=== PATIENT | female | born 1945 | race Caucasian/White ===

== ENCOUNTER 2021-04-27 13:58 | Outpatient (CLI) | payer MEDICARE, BC | END 2021-04-27 13:59 | disposition critical access hospital (66) | LOC: EMS 13:58 | DX: S01.81XA Laceration without foreign body of other part of head, initial encounter (principal); M25.562 Pain in left knee; M25.561 Pain in right knee; W01.0XXA Fall on same level from slipping, tripping and stumbling without subsequent striking against object, initial encounter; Y92.008 Other place in unspecified non-institutional (private) residence as the place of occurrence of the external cause | CPT/HCPCS: A0425; A0429 ==

== ENCOUNTER 2021-04-27 14:29 | Emergency (ER) | payer MEDICARE, BC ==
[2021-04-27] MEDS ORDERED: TETANUS/DIPHTHERIA/PERTUSSIS 0.5 ML SYRINGE IM ONE (14:56)
--- NOTE | 2021-04-27 15:01 | ED Physician Documentation ---
History of Present Illness - Stated complaint Stated Complaint: GLF - Chief complaint Chief Complaint: Trauma Hd/Nk - Additonal information Additional information: 76-year-old female presents to the emergency department for evaluation of facial trauma after ground-level fall. She was walking her dogs to the backyard when she tripped on the door jam falling forward striking herself on pebbled concrete. No loss of consciousness. She is not anticoagulated. She had difficulty getting up but states that she always has difficulty getting up when off the ground due to knee pain. She presents here with a modified cervical collar and facial abrasion forehead abrasion. Neurologically appears intact. Review of Systems Constitutional: denies: Fever, Chills Eyes: reports: Reviewed and negative Ears: reports: Reviewed and negative Nose: reports: Reviewed and negative Throat: reports: Reviewed and negative Cardiac: reports: Reviewed and negative Respiratory: reports: Reviewed and negative GI: reports: Reviewed and negative : reports: Reviewed and negative Skin: reports: Reviewed and negative Musculoskeletal: reports: Neck pain Neurologic: reports: Headache, Head injury. denies: Generalized weakness, Focal weakness, Numbness, Confused, LOC PD PAST MEDICAL HISTORY - Past Surgical History General: Cholecystectomy - Present Medications Home Medications: Ambulatory Orders Medication Instructions Recorded Confirmed No Known Home Medications 04/12/14 04/27/21 - Allergies Allergies/Adverse Reactions: Allergies Allergy/AdvReac Type Severity Reaction Status Date / Time No Known Drug Allergies Allergy Verified 04/27/21 14:36 PD ED PE EXPANDED - General General: Alert, No acute distress - HEENT HEENT: PERRL, EOMI, Ears normal, Moist mucous membranes, Pharynx normal. No: Atraumatic (Large abrasion and contusion just above the forehead extending into the hairline.) - Neck Neck: Supple w/out meningeal sx (Once c-spine CT negative; modified collar (blanket) removed. pt is ranging her neck normally withotu pain), Soft tissue TTP. No: No tenderness (Mild soft tissue tenderness. No midline spinous process tenderness. Full range of motion of the neck.), Bony TTP, Limited ROM - Cardiac Cardiac: Regular Rate, Radial strong equal, Pedal strong equal, Cap refill < 2 sec - Respiratory Respiratory: Clear to ausultation kishore. No: Distress, Labored - Abdomen Abdomen: Normal Bowel sounds - Back Back: Normal exam. No: Soft tissue tenderness - Derm Derm: Abrasion (s) (Central forehead extending into the hairline) - Extremities Extremities: Normal. No: Deformity, Tenderness - Neuro Neuro: Alert and Oriented X 3, CNII-XII intact, Normal finger nose, Normal speech - GCS Eye Opening: Spontaneous Motor: Obeys Commands Verbal: Oriented Total: 15 Results - Vitals Vitals: Vital Signs - 24 hr 04/27/21 14:34 Temperature 36.9 C Heart Rate 83 Respiratory 18 Rate Blood Pressure 181/90 H O2 Saturation 99 Oxygen O2 Source Room air - Rads (name of study) CT head Radiology: Final report received (Atrophy and chronic ischemic change without acute hemorrhage or mass-effect) maxfac CT Radiology: Final report received (Left frontal scalp hematoma without maxillofacial fracture) Cervical CT Radiology: Final report received (No visualized fracture) PD MEDICAL DECISION MAKING - ED course Complexity details: reviewed results, re-evaluated patient, d/w patient ED course: 76-year-old female presents the emergency department for evaluation of facial trauma after ground-level fall this morning in which she tripped on her door jam. She fell forward striking her forehead on concrete. There was no loss of consciousness and she is not anticoagulated. She does present with a very large left-sided forehead abrasion and contusion. She did present as a modified trauma with a modified c-collar (blanked wrapped around her neck) in place. CT max face, head and neck were without acute findings. I did remove the modified collar and patient is able to fully range her neck without any pain elicited. Patient is advised ibuprofen or Tylenol for for any discomfort. Emergent worrisome return precautions were discussed. Departure - Departure Disposition: 01 Home, Self Care Clinical Impression: Fall from ground level Contusion of forehead Qualifiers: Encounter type: initial encounter Qualified Code(s): S00.83XA - Contusion of other part of head, initial encounter Forehead abrasion Qualifiers: Encounter type: initial encounter Qualified Code(s): S00.81XA - Abrasion of other part of head, initial encounter Condition: Stable Record reviewed to determine appropriate education?: Yes Instructions: ED Head Injury Closed Comments: You were seen in the emergency department today after a ground-level fall in which she fell forward striking her face on the concrete. You do have an abrasion and contusion to your forehead. In general treat this like any other abrasion. Wash with warm soap and water pat dry and then apply any antibiotic ointment such as Neosporin or bacitracin. We did do a CT scan of your head, neck and facial bones. There were no fractures seen or findings of bleeding within the brain. I expect over the next 24 to 72 hours the you are generally sore from your fall. I recommend that you take Tylenol or ibuprofen for discomfort. Reasons to return to the emergency department would include sudden severe headache, vision changes, slurred speech, droopy face, significant personality or mentation changes.
--- NOTE | 2021-04-27 15:43 | CT Report ---
PROCEDURE: CT brain without contrast INDICATIONS: Ground-level fall TECHNIQUE: Noncontrast 4.5 mm thick angled axial sections acquired from the foramen magnum to the vertex. For r adiation dose reduction, the following was used: automated exposure control, adjustment of mA and/or kV according to patient size. COMPARISON: None FINDINGS: Image quality: Excellent. CSF spaces: Basal cisterns are patent. No extra-axial fluid collections. Ventricles are normal in size and shape. Brain: No midline shift. No intracranial masses or hemorrhage. Hallman-white matter interface is norm al. Moderate atrophy and multifocal white matter chronic ischemic change noted. Atherosclerotic vasc ular calcification noted in the cavernous segments of both internal carotid arteries as well as the i ntradural vertebral arteries. Skull and face: Calvarium and visualized facial bones are intact, without suspicious lesions. Left frontal scalp hematoma noted Sinuses: Visualized sinuses and mastoids are clear. IMPRESSION: Atrophy and chronic ischemic change without acute hemorrhage or mass effect Reviewed by: Dalton Miller MD on 04/27/2021 2:42 PM [facility] Approved by: Dalton Miller MD on 04/27/2021 2:42 PM [facility] Station ID: [id number]
--- NOTE | 2021-04-27 15:44 | CT Report ---
PROCEDURE: CERVICAL SPINE WO INDICATIONS: GLF; neck pain TECHNIQUE: Noncontrast 3 mm thick sections acquired from the skull base to the T4 level. Sagittal and coronal r eformats were then constructed. For radiation dose reduction, the following was used: automated exp osure control, adjustment of mA and/or kV according to patient size. COMPARISON: None. FINDINGS: Image quality: Excellent. Bones: No fractures or dislocations. Visualized superior ribs are intact. Soft tissues: Prevertebral soft tissues are normal in thickness. No paravertebral hematomas. No ap ical pneumothoraces. IMPRESSION: No visualized fracture. Reviewed by: Bonny Yu MD on 04/27/2021 3:42 PM PST Approved by: Bonny Yu MD on 04/27/2021 3:42 PM [facility] Station ID: [id number]
--- NOTE | 2021-04-27 15:48 | CT Report ---
PROCEDURE: MAXILLOFACIAL WO INDICATIONS: GLF TECHNIQUE: Noncontrast 1.5 mm thick axial images acquired from the mandible through the frontal sinuses, with co ashok and sagittal reformatting. For radiation dose reduction, the following was used: automated ex posure control, adjustment of mA and/or kV according to patient size. COMPARISON: None. FINDINGS: Image quality: Excellent. Bones and teeth: Orbital roque are intact. Sinus roque show no fracture or deformity. Nasal bones and septum are intact. Visualized portions of the mandible demonstrate no fractures or subluxation. Zygomatic arches are intact. Pterygoid plates are intact. Visualized portions of the skull base an d auditory canals are intact. Sinuses: Paranasal sinuses are aerated, without fluid levels, mucosal thickening, or mucoceles. Mas toid air cells are aerated. Soft tissues: No edema, masses, or fluid collections. No enlarged lymph nodes. No soft tissue lace rations or debris. Left frontal scalp soft tissue swelling noted. Vascular: Visualized vascular structures appear normal in the absence of contrast. Bony vascular fo ramina and canals are intact. IMPRESSION: Left frontal scalp hematoma without maxillofacial fracture Reviewed by: Dalton Miller MD on 04/27/2021 2:47 PM [facility] Approved by: Dalton Miller MD on 04/27/2021 2:47 PM [facility] Station ID: [id number]
[2021-04-27 16:46] VITALS: BP 188/87
== END 2021-04-27 17:00 | disposition home or self-care (01) ==
LOC: EDUNIT# → ED 14:29
DX: S50.319A Abrasion of unspecified elbow, initial encounter (principal); W01.198A Fall on same level from slipping, tripping and stumbling with subsequent striking against other object, initial encounter; Y93.K1 Activity, walking an animal; Y92.007 Garden or yard of unspecified non-institutional (private) residence as the place of occurrence of the external cause
CPT/HCPCS: 90471; 99282; 99284

== ENCOUNTER 2021-06-12 12:10 | Outpatient (CLI) | payer MEDICARE, BC ==
[2021-06-12 14:55] LABS: BASOPHILS # (AUTO) 0.1 10^3/uL (0.0-0.1); BASOPHILS % (AUTO) 1.2 %; EOSINOPHILS # (AUTO) 0.1 10^3/uL (0.0-0.7); EOSINOPHILS % (AUTO) 3.1 %; HCT - HEMATOCRIT 42.3 % (37.0-47.0); HGB - HEMOGLOBIN 13.8 g/dL (12.0-16.0); LYMPHOCYTES # (AUTO) 1.2 10^3/uL (1.5-3.5); LYMPHOCYTES % (AUTO) 28.6 %; MEAN CORPUSCULAR HEMOGLOBIN 31.8 pg (27.0-31.0); MEAN CORPUSCULAR HGB CONC 32.6 g/dL (32.0-36.0); MEAN CORPUSCULAR VOLUME 97.5 fL (81.0-99.0); MEAN PLATELET VOLUME 10.9 fL (7.9-10.8); MONOCYTES # (AUTO) 0.3 10^3/uL (0.0-1.0); MONOCYTES % (AUTO) 7.4 %; NEUTROPHILS # (AUTO) 2.5 10^3/uL (1.5-6.6); NEUTROPHILS % (AUTO) 59.2 %; PLT - PLATELET COUNT 244 10^3/uL (130-450); RED BLOOD COUNT 4.34 10^6/uL (4.20-5.40); RED CELL DISTRIBUTION WIDTH 13.1 % (12.0-15.0); WHITE BLOOD COUNT 4.2 x10^3/uL (4.8-10.8)
[2021-06-12 15:27] LABS: ALBUMIN 4.1 g/dL (3.2-5.5); ALBUMIN/GLOBULIN RATIO 1.8 (1.0-2.2); ALKALINE PHOSPHATASE 82 IU/L (42-121); ALT ALANINE AMINOTRANSFERASE 24 IU/L (10-60); AST ASPARTATE AMINOTRANSFERASE 20 IU/L (10-42); BILIRUBIN,TOTAL 0.7 mg/dL (0.2-1.0); BUN - BLOOD UREA NITROGEN 16 mg/dL (6-20); CARBON DIOXIDE - CO2 27 mmol/L (21-32); CHLORIDE 102 mmol/L (101-111); CHOL/HDL RATIO 3.3 (<4.4); CHOLESTEROL 215 mg/dL; CREATININE 0.5 mg/dL (0.4-1.0); GFR - MDRD 121 (>89); GLUCOSE 111 mg/dL (70-100); HDL CHOLESTEROL 65 mg/dL; LDL CHOLESTEROL,CALCULATED 132 mg/dL; POTASSIUM 4.3 mmol/L (3.5-5.0); SODIUM 137 mmol/L (135-145); TOTAL PROTEIN 6.4 g/dL (6.7-8.2); TRIGLYCERIDES 90 mg/dL; VLDL CHOLESTEROL 18 mg/dL
[2021-06-12 16:07] LABS: THYROID STIMULATING HORMONE 2.01 uIU/mL (0.34-5.60)
== END 2021-06-12 12:11 | disposition home or self-care (01) ==
LOC: LAB.S 12:10
PROVIDERS: ATTEND Family Medicine
DX: G47.33 Obstructive sleep apnea (adult) (pediatric) (principal); E66.9 Obesity, unspecified; K21.9 Gastro-esophageal reflux disease without esophagitis
CPT/HCPCS: 36415; 80053; 80061; 83721; 84443; 85025

== ENCOUNTER 2021-07-28 12:54 | Outpatient (CLI) | payer MEDICARE, BC ==
[2021-07-28 13:57] VITALS: BP 156/95
--- NOTE | 2021-07-28 13:58 | SLEEP CARE CONSULTATION ---
Information from patient questionnaire entered by Tabitha Leo MA. I have reviewed and concur with the information entered by Tabitha Leo MA. This document represents the service I personally performed and the decisions made by , Romi Butts ARNP. History of Present Illness Service Date and Time: 07/28/2021 1254 Reason for Visit: New patient (last seen 2015,was on cpap, prior [facility] 04/2014, prior [facility] 09/2015), Previously diagnosed sleep apnea, Re-establish care Chief Complaint: reports: Unrefreshed sleep, Snoring, Excessive daytime sleepiness, Observed pauses in breathing, Fatigue, Other (UPDATE SUPPLIES) Date of Onset: 10 YEAR Usual bedtime: 1100 PM Time it takes to fall asleep: 5-30 MINUTES Snores at night: Yes Observed to quit breathing while asleep: Yes Sleeps alone due to snoring: Yes Number of times waking at night: 2 Reasons for waking at night: reports: Choking, Pain, Bathroom, Other (LEG CRAMPS) Toss, Turn, or Twitch while sleeping: No Recalls having dreams: Yes Usually gets out of bed at: 0630 -0700 Feels refreshed in the morning: No Morning headache: Yes (dull headache; every day; resolves after morning coffee) Sleepy or fatigued during the day: Yes Ever fallen asleep while driving: Yes (drowsy driving, no accidents) Takes day naps: Yes (2 times a week; for about hr to two) Dreams during day naps: No Prior sleep studies: Yes Year and Where: 2014 AND 2015 SLEEP STUDIES Additional HPI information: MICHAEL TREJO was previously diagnosed to have moderate, AHI 21.9, obstructive sleep apnea-hypopnea syndrome and comes in today to re-establish care for CPAP therapy. Patient has not been using her CPAP for about 5 years. She states it was a hassle to take with her and she was traveling a lot about 5 years ago. She was also having trouble getting supplies from her [facility]. She comes back now due to increased daily fatigue, unrefreshed sleep and snoring. - Parasomnia Symptoms Ever been unable to move upon waking from sleep: No Walks in sleep: No Talks in sleep: No Ever acted out dreams in sleep: No Ever felt weak in the knees when startled or emotional: No Bothered by creepy, crawly, restless sensations in legs: Yes Problems with memory or concentration: Yes CPAP Compliance Data Compliance data discussion: She had been using a [employer]. She used a nasal cushion mask. She has not been using her CPAP for about 5 years. Subjective Missed days of use due to: reports: travel Patient concerns: reports: mask discomfort (coming loose and shifting around; new mask would be okay). denies: aerophagia, air blowing in eyes, mask leak noise, condensation in mask/hose, nasal congestion, dry mouth, nose, throat, epistaxis, other Observed to snore while using device: No Current pressure setting perceived as: comfortable On therapy, patient: reports: sleeping better, awakening more refreshed, being more awake and alert during the day, more rested overall. denies: drowsiness while driving Initial [place] Sleepiness Scale score: 15 (07/2021) Past Medical History Past Medical History: reports: Arthritis, Other (incidences of high blood pressure being evaluated with patient monitoring for 3 months) Social History The patient's occupation is a [employer]. Patient is and lives in [place]. Have you smoked in the past 12 months: No Alcohol use: Yes Alcohol amount and frequency: 2 glasses maybe 3 times a week Caffeine use: Yes Caffeine amount and frequency: 1-2 cups coffee in morning Family History Family history of sleep disordered breathing: Yes Family Hx Sleep Apnea: Father: Snoring Allergies and Home Medications Known drug allergies: No Drug allergies reviewed: Yes Home medication list reviewed: Yes Allergy and home medication list: Allergies No Known Drug Allergies Allergy (Verified 04/27/21 14:36) Medications: (all over the counter) Aleve twice daily Tylenol Arthritis 650 mg twice daily Prilosec nightly Afrin nasal spray eye drops Review of Systems Weight gain over past 5 years: 25 lb Cardiovascular: reports: high blood pressure, leg or foot swelling, have to sleep sitting up Gastrointestinal: reports: heartburn, difficulty swallowing Urinary: reports: urgency Neurological: reports: headaches, gait or balance problems (joints not as movable) Ear/Nose/Throat: reports: nasal congestion, dry mouth/throat, hoarseness, injury to nose, wisdom teeth removed Endocrine: reports: sluggishness Musculoskeletal: reports: joint pain, neck pain, back pain, joint swelling, muscle pain or cramping (legs), mobility problems Immunologic: reports: itching (some) Physical Exam Vital signs obtained and entered by: JANINA YANES Blood Pressure: 156/95 (RESP 18, PULSE 64, RIGHT, ) Cuff size: wrist Heart Rate: 65 O2 Saturation: 96 (PAPER ASK) Height: 5 ft 6 in Weight: 200 lb (WITH CLOTHES) Weight change since last visit: TRYING TO LOOSE WEIGHT, EXCERCISE. Body Mass Index: 32.3 BMI Classification: Obese Neck circumference: 13 (INCHES) Nasal exam: positive: erythema Heart: regular rate and rhythm Lungs: clear bilaterally Impression and Plan 1. Suspected Obstructive Sleep Apnea-Hypopnea Syndrome, as previously diagnosed and as suggested by a history of loud and irregular snoring, observed cessation of breath while asleep, morning headache, unrefreshed sleep, cognitive impairment, and excessive daytime sleepiness. She has not been using her CPAP for about 5 years and comes in today to see if she still needs a CPAP. I recommend proceeding to polysomnography to confirm the diagnosis and to assess severity. If the patient has significant sleep disordered breathing, a manual CPAP titration study will also be performed to find the optimal treatment pressure. I informed the patient of what the sleep studies involve and after some discussion, obtained agreement to proceed. The pathophysiology of obstructive sleep apnea-hypopnea syndrome was discussed with the patient and health risks of cardiovascular and cerebrovascular disease if not treated. 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 Patient agreed to plan. * Schedule polysomnography * Avoid long distance driving or driving when feeling sleepy. * Avoid alcohol, sedative and muscle relaxant around bedtime. * Attempt to lose weight. * Review instructions provided by trained office staff on how to prepare for the sleep study. * Return for follow-up after sleep study completed. Counseling Topics: Weight loss health impact Visit Type: In Office Time Spent with Patient (minutes): 31 Provider Statement: I spent 100% of the Face to Face Visit with the patient with greater than 50% spent counseling the patient and coordination of care.
== END 2021-07-28 12:55 | disposition home or self-care (01) ==
LOC: SC 12:54
PROVIDERS: ATTEND Nurse Practitioner Family
DX: G47.33 Obstructive sleep apnea (adult) (pediatric) (principal); E66.9 Obesity, unspecified; Z68.32 Body mass index [BMI] 32.0-32.9, adult
CPT/HCPCS: 99203; G0463; 99212

== ENCOUNTER 2021-09-01 10:30 | Outpatient (CLI) | payer MEDICARE, BC ==
[2021-09-01 11:36] VITALS: BP 165/91
--- NOTE | 2021-09-01 11:36 | SLEEP CARE CONSULTATION ---
Information from patient questionnaire entered by Tabitha Leo MA. I have reviewed and concur with the information entered by Tabitha Leo MA. This document represents the service I personally performed and the decisions made by , Romi Butts ARNP. History of Present Illness Service Date and Time: 09/01/2021 1030 Initial [place] Sleepiness Scale score: 15 (07/2021) Current [place] Sleepiness Scale score: 14 (09/01/2021) Additional HPI information: MICHAEL TREJO returns for follow up and results of the recently performed polysomnography. I explained the pathophysiology behind obstructive sleep apnea. We then spent q uite a bit of time discussing different treatment options. For mild obstructive sleep apnea, surgery and oral appliance are alternatives to nasal CPAP therapy but in moderate or severe cases, nasal CPAP is the most effective and reliable treatment. Because apnea is primarily in supine position, then positional management therapy could be effective. Methods discussed such as positioning with pillows to prevent supine sleep. I reviewed the impact of weight changes on sleep apnea and strongly recommended losing weight. After some discussion, the patient opted to go with the nasal CPAP therapy. Nasal autoCPAP set at 4-15 cmH20 will be ordered with rationale explained. A manual titration study will be ordered if unable to find optimal pressure with office adjustments. I explained how CPAP machine works and what to expect when using the machine. Using CPAP every night in order to get used to it was emphasized. Patient advised to put CPAP mask on before getting into bed so as not to fall asleep without CPAP. To assist acclimation to CPAP use, it could also be used for a short time during day while reading or watching TV. The patient was instructed to call the CPAP supplier to discuss any mechanical problem that may occur. If the mask given is uncomfortable or is difficult to keep on through the night even with adjustment, contact the CPAP supplier as many will replace with another mask style if notified before 30 days. If snoring or perceives is not getting enough air or too much air from the machine, notify this office. Patient counseled not drink alcohol less than 4 hours before bedtime as it can increase snoring and apnea. Patient was cautioned about risks of drowsy driving until sleepiness symptoms resolve. Sleep Study - Results Type of Sleep Study: Polysomnography (F/U POLY, M6/ [facility], POS) Prior sleep studies: Yes Year and Where: 2014 AND 2015 SLEEP STUDIES Polysomnography/Home Sleep Study results: IMPRESSION: The quality of the study is good. The patient had reduced sleep efficiency due to frequent awakenings after the sleep onset. The sleep architecture was abnormal for sleep fragmentation and reduced amount of time spent in REM and slow wave sleep (N3). Respiratory monitoring showed moderate obstructive sleep apneahypopnea (AHI = 26.4) associated with frequent arousals, oxyhemoglobin desaturation and mild hypoxia (candice oxygen saturation of 82%). The respiratory events occurred mainly during supine sleep (supine AHI = 38.8; nonsupine = 11.50). Snore was moderate to loud in intensity. There was moderate periodic leg movement of sleep contributing to the sleep fragmentation. Cardiac rhythm was normal sinus rhythm without significant arrhythmia. No abnormal behavior (parasomnia) observed during the night. Allergies and Home Medications Home medication list reviewed: Yes (no changes) Allergy and home medication list: Allergies No Known Drug Allergies Allergy (Verified 04/27/21 14:36) Review of Systems Review of systems same as previous: Yes (no changes) Physical Exam Blood Pressure: 165/91 (RESP 18, PULSE 65, RIGHT) Cuff size: wrist Heart Rate: 61 O2 Saturation: 98 (PAPER MASK) Height: 5 ft 6 in ([facility]) Weight: 203 lb Body Mass Index: 32.8 BMI Classification: Obese Impression and Plan 1. Obstructive Sleep Apnea-Hypopnea Syndrome, moderate, with lowest oxygen saturation of 82%. Patient's study shows that she still qualifies for CPAP therapy. As mentioned above, the patient will be started on nasal autoCPAP therapy with pressure set at 4-15 cmH2O. Compliance guidelines also reviewed. A copy of compliance guidelines will be given for reference at check out. Because the apnea is more severe supine, I instructed to avoid sleeping supine using pillow positioning until able to start CPAP use. 2. Hypoxemia, mild, her candice oxygen saturation of 82% with 5.6 minutes spent under 90%. Her baseline oxygen saturation was normal with an average oxygen saturation of 93%. 3. Periodic limb movement, moderate, that did contribute to fragmentation of patients sleep. Periodic limb movement of sleep (PLMS) is characterized by episodes of repetitive limb movements that occur during sleep and usually involve the lower limbs. The etiology is unknown but can be associated with restless leg syndrome (RLS), a low serum ferritin level, neuropathy, spinal cord diseases, kidney disease, rheumatological disorders, narcolepsy, obstructive sleep apnea, and REM sleep behavior disorder. Caffeine can also aggravate PLMS and should be avoided. Sleep hygiene methods can also improve sleep as well as lifestyle changes such as regular exercise. Patient was advised that no treatment is needed at this time. If symptoms increase, then further evaluation is indicated. 4. Elevated blood pressure during visit today in patient being monitored for hypertension. Her blood pressure was noted to be at 165/91 today and she does have a headache but otherwise feels well. I advised her to update her PCP if blood pressure is still elevated when she rechecks it at home. She voiced understanding. * Nasal auto CPAP therapy, pressure at 4-15 cm H2O. * Attempt to lose weight. * Avoid alcohol consumption near bedtime. * Avoid supine sleep until using CPAP. * The patient is again cautioned about driving until sleepiness completely resolves. * Return one month after CPAP obtained. I will assess response to therapy and compliance at that time. Counseling Topics: Sleeping position, Weight loss health impact Visit Type: In Office Time Spent with Patient (minutes): 26 Provider Statement: I spent 100% of the Face to Face Visit with the patient with greater than 50% spent counseling the patient and coordination of care.
== END 2021-09-01 10:31 | disposition home or self-care (01) ==
LOC: SC 10:30
PROVIDERS: ATTEND Nurse Practitioner Family
DX: G47.33 Obstructive sleep apnea (adult) (pediatric) (principal); R09.02 Hypoxemia; G47.61 Periodic limb movement disorder; I10 Essential (primary) hypertension; E66.9 Obesity, unspecified; Z68.32 Body mass index [BMI] 32.0-32.9, adult
CPT/HCPCS: 99213; G0463; 99212

== ENCOUNTER 2022-03-16 13:04 | Outpatient (CLI) | payer MEDICARE, BC ==
--- NOTE | 2022-03-17 11:04 | Mammography Report ---
BILATERAL DIGITAL SCREENING MAMMOGRAM 3D/2D: 03/16/2022 CLINICAL: Routine screening. Family history of breast cancer. Comparison is made to exams dated: 08/19/2015 mammogram, 04/24/2014 mammogram, and 08/15/2013 mammogram - [facility]. There are scattered areas of fibroglandular density in both breasts (category b / 25%-50% glandular t issue). There is a biopsy clip in the left breast. No significant masses, calcifications, or other findings are seen in either breast. There has been no significant interval change. IMPRESSION: NEGATIVE There is no mammographic evidence of malignancy. A 1 year screening mammogram is recommended. Based on the Tyrer Cuzick model (a risk assessment model) the patients lifetime risk is 7.6% and her 10 year risk is 7.6%. According to the ACR, ACS, and NCCN guidelines, an annual breast MRI exam sulma g with mammogram is recommended if the patients lifetime risk is 20% or greater. This exam was interpreted at Station ID: [id number]. NOTE: For mammograms, a report in lay terms will be sent to the patient. Approximately 15% of breast malignancies will not be visualized mammographically. In the management of a palpable breast mass, a negative mammogram must not discourage biopsy of a clinically suspicious lesion. Electronically Signed By: Yumiko garcia/fran:03/16/2022 17:23:14 ACR BI-RADS Category 1: Negative 3341F PARENCHYMAL PATTERN: (A) - The breast(s) demonstrate(s) scattered fibroglandular densities. BI-RADS CATEGORY: (1) - 1 RECOMMENDATION: (ANNUAL) - Recommend routine annual screening mammography. [id number] 1 year screening LATERALITY: (B)
== END 2022-03-16 13:05 | disposition home or self-care (01) ==
LOC: DI 13:04
DX: Z12.31 Encounter for screening mammogram for malignant neoplasm of breast (principal); Z80.3 Family history of malignant neoplasm of breast

== ENCOUNTER 2022-03-16 18:23 | Outpatient (CLI) | payer MEDICARE, BC ==
--- NOTE | 2022-03-16 20:13 | Ultrasound Report ---
PROCEDURE: Pelvic w/Transvaginal INDICATIONS: ABNORMAL VAGINAL BLEEDING TECHNIQUE: Real-time scanning was performed of the pelvic organs, with image documentation. Additional endovagi nal scanning was necessary due to incomplete visualization of the adnexal and endometrial structures by transabdominal scanning. COMPARISON: None. FINDINGS: Uterus: Uterus is retroverted and normal in size at 7.5 x 5.2 x 4 cm. The myometrium is heterogeneo us. The endometrium measures 29 mm in combined thickness. Increased vascularity in the endometrium. Ovaries: Ovaries are not identified. Other: No pathologic free abdominal or pelvic fluid. IMPRESSION: 1. Masslike markedly thickened heterogeneous endometrium measuring 29 mm in thickness. There is inter nal vascularity. This is consistent with endometrial carcinoma until proven otherwise. Recommend endo metrial biopsy. 2. Ovaries are not seen. Consider further evaluation with pelvic MRI with IV contrast. Reviewed by: Jeffrey Samson MD on 03/16/2022 8:12 PM PST Approved by: Jeffrey Samson MD on 03/16/2022 8:12 PM PST Station ID: [id number]
== END 2022-03-16 18:24 | disposition home or self-care (01) ==
LOC: DI 18:23
PROVIDERS: ATTEND Nurse Practitioner
DX: R93.89 Abnormal findings on diagnostic imaging of other specified body structures (principal); N93.9 Abnormal uterine and vaginal bleeding, unspecified

== ENCOUNTER 2022-04-27 07:37 | Day surgery (SDC) | payer MEDICARE, BC ==
--- NOTE | 2022-04-27 07:22 | ANESTHESIA ---
Pre-Anesthesia VS, & Labs - Diagnosis post-menopausal bleeding - Procedure myosure hysteroscopy, D&C Height: 5 ft 6 in (Denise SHANNON, [facility]) - NPO >8 hours - Is Patient ?: No - Lab Results Lab results reviewed: Yes Home Medications and Allergies Home Medications: Ambulatory Orders Acetaminophen [Tylenol] 650 mg PO Q6H PRN 04/22/22 Naproxen Sodium [Aleve] 220 mg PO DAILY PRN 04/22/22 Omeprazole 20 mg PO DAILY 04/22/22 Acetaminophen [Tylenol] 650 mg PO Q6H PRN 04/22/22 Naproxen Sodium [Aleve] 220 mg PO DAILY PRN 04/22/22 Omeprazole 20 mg PO DAILY 04/22/22 Allergies/Adverse Reactions: Allergies Allergy/AdvReac Type Severity Reaction Status Date / Time No Known Drug Allergies Allergy Verified 04/27/21 14:36 Anes History & Medical History - Anesthetic History Anesthesia Complications: reports: No previous complications Family history of Anesthesia Complications: Denies Family history of Malignant Hyperthermia: Denies - Medical History Cardiovascular: reports: Hypertension Pulmonary: reports: Sleep apnea, CPAP use Gastrointestinal: reports: GERD Urinary: reports: None Musculoskeletal: reports: Osteoarthritis Endocrine/Autoimmune: reports: None Skin: reports: None Smoking Status: Never smoker - Surgical History General: reports: Cholecystectomy, Colonoscopy Eyes Ears Nose Throat (EENT): reports: Cataracts Exam General: Alert, Oriented x3, Cooperative Dental: WNL Mouth Openin Fingerbreadth Neck Mobility: Normal Mallampati classification: II Respiratory: Lungs clear, Normal breath sounds, No respiratory distress Cardiovascular: Regular rate Neurological: Normal speech Mental/Cognitive Status: Alert/Oriented X3, Normal for patient Cognitive Status: Within normal limits Plan Anesthesia Type: General Consent for Procedure(s) Verified and Reviewed: Yes Code Status: Attempt Resuscitation ASA classification: 3-Severe systemic disease Is this case an emergency?: No
[~2022-04-27 07:37] MED LIST: miSOPROStoL 200 MCG TABLET ONE
[2022-04-27] MEDS ORDERED: LACTATED RINGERS 1,000 ML IV ONE ×2 (07:42→10:59)
[2022-04-27] MEDS ORDERED: ATROPINE ABBOJECT 1 MG/10 ML SYRINGE IVP PRN (08:30)
[2022-04-27] MEDS ORDERED: ePHEDrine 50 MG/ML VIAL IVP PRN (08:30)
[2022-04-27] MEDS ORDERED: ONDANSETRON 4 MG/2 ML VIAL IVP PRN (08:30)
[2022-04-27] MEDS ORDERED: MORPHINE 2 MG/ML CARPUJECT IVP PRN (08:30)
[2022-04-27] MEDS ORDERED: METOCLOPRAMIDE 10 MG/2 ML VIAL IVP PRN (08:30)
[2022-04-27] MEDS ORDERED: NALOXONE 0.4 MG/ML VIAL IVP PRN (08:30)
[2022-04-27] MEDS ORDERED: HYDROmorphone 0.5 MG/0.5 ML SYRINGE IVP PRN (08:30)
[2022-04-27] MEDS ORDERED: fentaNYL 100 MCG/2 ML VIAL IVP PRN (08:30)
[2022-04-27] MEDS ORDERED: LIDOCAINE-PF 2% 10 ML AMP SUBQ ONE (08:35)
[2022-04-27] MEDS ORDERED: MIDAZOLAM 2 MG/2 ML VIAL ONE (08:35)
[2022-04-27] MEDS ORDERED: PROPOFOL 200 MG/20 ML VIAL IVP ONE (08:36)
[2022-04-27] MEDS ORDERED: LACTATED RINGERS 1,000 ML IV SCH (09:00)
[2022-04-27] MEDS ORDERED: ONDANSETRON 4 MG/2 ML VIAL ONE (09:10)
[2022-04-27] MEDS ORDERED: DEXAMETHASONE 4 MG/ML VIAL ONE (09:10)
--- NOTE | 2022-04-27 12:48 | ANESTHESIA POST OP EVALUATION ---
Anesthesia Post Eval - Post Anesthesia Eval Vitals: Last Vital Signs Temp 37.6 C 04/27/22 11:55 Pulse 69 04/27/22 11:55 Resp 14 04/27/22 11:55 BP 150/67 H 04/27/22 11:55 Pulse Ox 97 04/27/22 11:55 O2 Flow Rate CV Function Including HR & BP: Stable Pain Control: Satisfactory Nausea & Vomiting: Negative Mental Status: Baseline Respiratory Status: Airway Patent Hydration Status: Satisfactory Anesthesia Complications: None
[2022-04-27 12:58] VITALS: BP 146/72
--- NOTE | 2022-04-27 17:07 | OPERATIVE REPORT ---
Operative Report - General Procedure Date: 04/27/22 Planned Procedure: Dilation and curettage, hysteroscopy Pre-Op Diagnosis: Thickened endometrium, postmenopausal bleeding Procedure Performed: Hysteroscopic removal of endometrial polyp and submucosal leiomyoma Post Op Diagnosis: Endometrial polyp, submucosal leiomyoma - Procedure Note Primary Surgeon: Estefani Brock DO Anesthesia Provider: Randall Rodas CRNA Anesthesia Technique: General LMA Estimated Blood Loss (mL): 40 Indications: Thickened endometrium, postmenopausal bleeding Findings: Endometrial polyp, submucosal leiomyoma Complications: None - Other Other Information/Narrative: Patient taken to OR where general anesthesia obtained without difficulty. Placed in dorsal lithotomy position in Sridhar stirrups. Prepped and draped in sterile fashion. Galeana catheter inserted and removed after emptying bladder. [place] speculum placed in vagina. Anterior lip of cervix grasped with single tooth tenaculum. Cervix dilated to accomodate Myosure hysteroscope. Hysteroscope introduced into cavity and aforementioned findings noted. Myosure Lite device used to resect and remove polyp and leiomyoma and perform curettage. Hysteroscope removed. Speculum and tenaculum removed.
== END 2022-04-27 07:38 | disposition home or self-care (01) ==
LOC: SDS 07:37
PROVIDERS: ATTEND Obstetrics & Gynecology
PROC: 0UB98ZZ Excision of Uterus, Via Natural or Artificial Opening Endoscopic (ICD-10-PCS; principal; 2022-04-27 08:45)
DX: C54.1 Malignant neoplasm of endometrium (principal); D25.0 Submucous leiomyoma of uterus; G47.33 Obstructive sleep apnea (adult) (pediatric); R32 Unspecified urinary incontinence; E66.9 Obesity, unspecified; Z68.32 Body mass index [BMI] 32.0-32.9, adult
CPT/HCPCS: 58561; A9270; J7120

== ENCOUNTER 2022-05-12 10:16 | Outpatient (CLI) | payer MEDICARE, BC | END 2022-05-12 10:17 | disposition home or self-care (01) | LOC: LAB 10:16 | PROVIDERS: ATTEND Obstetrics & Gynecology | DX: C55 Malignant neoplasm of uterus, part unspecified (principal) | CPT/HCPCS: 36415; 86304 ==

== ENCOUNTER 2022-05-22 11:09 | Outpatient (CLI) | payer MEDICARE, BC ==
[2022-05-22] MEDS ORDERED: DIATR MEGLU/DIATRIZOATE SODIUM 120 ML BOTTLE ONE (11:17)
[2022-05-22] MEDS ORDERED: iohexoL-300 100 ML VIAL ONE (11:17)
[2022-05-22 11:45] LABS: CREATININE 0.7 mg/dL (0.4-1.0)
[2022-05-22] MEDS ORDERED: DIATRIZOATE MEGLU/DIATRIZO SOD 30 ML BOTTLE PO ONE (12:46)
[2022-05-22] MEDS ORDERED: iohexoL-300 100 ML VIAL IVP ONE (12:46)
--- NOTE | 2022-05-22 13:43 | CT Report ---
PROCEDURE: CHEST W INDICATIONS: ENDOMETRIAL CA CONTRAST:100ml omni 300 TECHNIQUE: After the administration of intravenous contrast, 1 mm axial images were acquired from the pulmonary apices through the posterior costophrenic angles. Axial 5 mm soft tissue kernel reconstructions were performed as well as 8 mm axial MIP and coronal and sagittal 5 mm reformations. For radiation dose reduction, the following was used: automated exposure control, adjustment of mA and/or kV according to patient size. COMPARISON: None. FINDINGS: Image quality: Excellent. Lungs and pleura: The lower basilar aspect of the right upper lobe along the posterior margin of the lung there is some tree in bud nodular airspace opacities as seen on axial image 91 through 132. No p leural effusions or pneumothorax. Central and peripheral airways are patent and normal in caliber. Mediastinum: Heart size is normal. No pericardial effusion. No mediastinal or hilar adenopathy by size criteria. Thoracic aorta and central pulmonary arteries are normal in size. Esophagus is esther l in caliber. No hiatal hernia. Bones and chest wall: No suspicious bony lesions. No vertebral body compression fractures. No axil richard or supraclavicular adenopathy by size criteria. The thyroid is normal in size and there are no incidental findings.. Abdomen: Hepatic steatosis Visualized upper abdominal solid organs otherwise appear normal. Upper a bdominal bowel loops are normal in caliber. IMPRESSION: Tree in bud nodularity of the right upper lobe is likely infectious in nature, recommend attention to this area on follow-up imaging. Reviewed by: Smooth Cramer MD on 05/22/2022 12:42 PM MARYANA Approved by: Smooth Cramer MD on 05/22/2022 12:42 PM AKDT Station ID: [id number]
--- NOTE | 2022-05-22 13:55 | CT Report ---
PROCEDURE: ABDOMEN/PELVIS W INDICATIONS: ENDOMETRIAL CA CONTRAST: 100ml omni 300 TECHNIQUE: After the administration of oral and intravenous contrast, 5 mm thick sections acquired from the diap hragms to the symphysis. 5 mm thick coronal and sagittal reformats were acquired. For radiation dos e reduction, the following was used: automated exposure control, adjustment of mA and/or kV accordin g to patient size. COMPARISON: CT chest from same date FINDINGS: Image quality: Excellent. ABDOMEN: Lung bases: Lung bases are clear. Heart size is normal. Solid organs: Hepatic steatosis. Liver and spleen are otherwise normal in size and enhancement. Gal lbladder is not identified. Biliary system is non dilated. Pancreas enhances normally. No adrenal nodules. Kidneys demonstrate normal size and enhancement, without hydronephrosis. Peritoneum and bowel: Bowel loops demonstrate normal wall thickness and caliber. No free fluid or a ir. Nodes and vessels: No retroperitoneal or mesenteric adenopathy by size criteria. Aorta and inferior vena cava are normal in size. Miscellaneous: No ventral hernias. PELVIS: Genitourinary: Bladder wall thickness is normal. Reproductive organs: Mildly enlarged nodular appearance of the uterus with heterogeneous appearance. Miscellaneous: No inguinal hernias or adenopathy. Bones: No suspicious bony lesions. No vertebral body compression fractures. 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 2.Hepatic steatosis. Reviewed by: Smooth Cramer MD on 05/22/2022 12:53 PM AKDORI Approved by: Smooth Cramer MD on 05/22/2022 12:53 PM AKDT Station ID: [id number]
== END 2022-05-22 11:10 | disposition home or self-care (01) ==
LOC: LAB 11:09
PROVIDERS: ATTEND Obstetrics & Gynecology
DX: C55 Malignant neoplasm of uterus, part unspecified (principal); C54.1 Malignant neoplasm of endometrium; K76.0 Fatty (change of) liver, not elsewhere classified; R91.8 Other nonspecific abnormal finding of lung field
CPT/HCPCS: 36415; 71260; 74177; 82565; Q9963; Q9967

== ENCOUNTER 2022-05-27 13:48 | Outpatient (CLI) | payer MEDICARE, BC | END 2022-05-27 13:49 | disposition home or self-care (01) | LOC: RT 13:48 | PROVIDERS: ATTEND Obstetrics & Gynecology | DX: Z01.810 Encounter for preprocedural cardiovascular examination (principal) | CPT/HCPCS: 93005 ==

== ENCOUNTER 2022-08-31 13:06 | Outpatient (CLI) | payer MEDICARE, BC ==
--- NOTE | 2022-08-31 16:54 | XRAY Report ---
PROCEDURE: Knee 3 View BILAT INDICATIONS: KNEE EFFUSION, BOTH TECHNIQUE: 3 views of the both knee(s) were acquired. COMPARISON: None. FINDINGS: Bones: On the left, there is severe lateral and moderate medial compartmental joint space narrowing , and on the right, there is moderate medial and no lateral joint space narrowing. Mild to moderate b ilateral patellofemoral joint space narrowing with marginal osteophytes Soft tissues: No knee joint effusion. No suspicious soft tissue calcifications or masses. IMPRESSION: Bilateral osteoarthritis. No radiographic evidence of joint effusion Reviewed by: Dalton Miller MD on 08/31/2022 3:52 PM AKDORI Approved by: Dalton Miller MD on 08/31/2022 3:52 PM AKDT Station ID: [id number]
== END 2022-08-31 13:07 | disposition home or self-care (01) ==
LOC: DI.S 13:06
PROVIDERS: ATTEND Family Medicine
DX: M25.462 Effusion, left knee (principal); M25.461 Effusion, right knee; M17.0 Bilateral primary osteoarthritis of knee

== ENCOUNTER 2023-02-09 15:09 | Outpatient (CLI) | payer MEDICARE, BC ==
--- NOTE | 2023-02-09 16:00 | DEXA Report ---
PROCEDURE: Dexa Spine and/or Hip INDICATIONS: POST MENOPAUSAL TECHNIQUE: Dual energy x-ray absorptiometry (DXA) was performed on a [facility]. Regions measur ed are the AP Spine, femoral neck, and if needed forearm. COMPARISON: DEXA 04/24/2015, although cannot be directly compared secondary to different DEXA machine FINDINGS: Lumbar Spine: Bone Mineral Density 1.0 g/cm/cm,T score -1.5. Left Femoral Neck: Bone Mineral Density 0.819 g/cm/cm, T score -1.6. Left Hip: Bone Mineral Density 0.942 g/cm/cm,T score -0.5. (T score greater or equal to -1.0: NORMAL) (T score from -1.1 to -2.4: OSTEOPENIA) (T score less than or equal to -2.5 to: OSTEOPOROSIS) Impression: By WHO criteria, this patient has osteopenia within the lumbar spine and femoral neck. Patients with diagnosis of osteoporosis or osteopenia should have regular bone mineral density assess ment. For those eligible for Medicare, routine testing is allowed once every 2 years. Testing frequ ency can be increased for patients who have rapidly progressing disease or for those who are receivin g medical therapy to restore bone mass. Reviewed by: Bonny Yu MD on 02/09/2023 3:59 PM PST Approved by: Bonny Yu MD on 02/09/2023 3:59 PM PST Station ID: [id number]
== END 2023-02-09 15:10 | disposition home or self-care (01) ==
LOC: DI 15:09
PROVIDERS: ATTEND Family Medicine
DX: Z78.0 Asymptomatic menopausal state (principal); M85.89 Other specified disorders of bone density and structure, multiple sites